=== PATIENT | female | born 1985 | race African-American/Black ===

== ENCOUNTER 2016-09-18 12:32 | Emergency (ER) | payer SELFPAY ==
[2016-09-18 12:57] VITALS: BP 131/76; PULSE 86; TEMP 98.7; BMI 20.1
[2016-09-18 13:39] LABS: RBC/URINE 0-2 (0-5); WBC/URINE 20-30 (0-5)
--- NOTE | 2016-09-18 13:50 | EDPRACDOC ---
- General Information Chief Complaint: Abdominal Pain Stated Complaint: ABDOMINAL PAIN Time Seen by Provider: 09/18/16 13:35 Information Source: Patient Mode Of Arrival: Car Home Medications: Home Medications Nitrofurantoin [Macrobid] 100 mg PO BID #20 capsule 09/18/16 Allergies/Adverse Reactions: Allergies Allergy/AdvReac Type Severity Reaction Status Date / Time tramadol Allergy Severe Hives* Verified 09/18/16 13:37 acetaminophen Allergy Unknown Verified 09/18/16 13:37 [From Tylenol-Codeine #3] codeine phosphate Allergy Unknown Verified 09/18/16 13:37 [From Tylenol-Codeine #3] - History of Present Illness 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 SHE STATES HER URINE HAS A STRONG SMELL AND IS MORE CONCENTRATED THAN NORMAL. PT APPEARS NON TOXIC SITTING UP IN BED TALKING ON CELL PHONE LAUGHING AND SMILING. Pain Location: Reports: Suprapubic Pain Context: Reports: Spontaneous Pain Severity: Mild Pain Quality: Reports: Aching, Sharp Pain Radiation: Reports: No Radiation Last Menstrual Period: week late : (unknown) Control Method: Reports: None Blood Type: B+ Female Abdominal History: Reports: Similar Pain (dx) Modifying Factors: improves with: Movement Female Associated Signs & Symptoms: Reports: Other (INCREASED APPETITE) Oral Intake: Normal Urinary Output: Normal ED Past Medical History - History Reviewed Yes Nurses notes reviewed and agree except as marked Travel Outside of [place] in the Last 3 Months?: No No Past Medical History: Yes Patient has no past medical history - Patient Medical History Psychological History: Denies: Depression, Substance Use Disorder Systemic History: Reports: Anemia. Denies: Cancer, Lupus Additional Past Medical History: CURRENTLY Surgical History: Denies: Hysterectomy - Family Medical History Reports: Hypertension (mgm), Diabetes (aunt, mgm), Cancer (mother, aunt), Stroke (brother, uncle), Cardiac Disorders (mgf, aunt) - Social Medical History Smoking Status: Never smoker Social History: Denies: Substance Use Disorder ETOH: None Substance Abuse: None Lives With: Other Lives In: Home EDM Review of Systems - Review of Systems ROS Negative Except as Marked: Yes All systems reviewed and were negative except as marked Constitutional: No Symptoms Reported. negative: Fever, Chills, Weakness, Fatigue, Loss of Appetite Eyes: No Symptoms Reported. negative: Redness, Blurred Vision, Double Vision, Discharge, Pain, Light Sensitive, Photophobia Ears: No Symptoms Reported. negative: Pain, Hearing Loss, Drainage, Ear Pulling Throat: No Symptoms Reported. negative: Pain, Swelling Nose: No Symptoms Reported. negative: Congestion, Bleeding, Discharge, Injection, Swelling, Deformity, Ecchymosis, Tender, Abrasion, Laceration Mouth: No Symptoms Reported. negative: Pain, Drooling Respiratory: No Symptoms Reported. negative: Cough, Brassy Cough, Barky Cough, Shortness of Breath, Wheezing, Hemoptysis Cardiovascular: No Symptoms Reported. negative: Chest Pain, Palpitations, Syncope, Edema, Orthopnea, PND, Skin Mottling, Cyanosis Gastrointestinal: Pain. negative: Constipation, Diarrhea, Formula Intolerance, Melena, Nausea, Vomiting Genitourinary: No Symptoms Reported. negative: Dysuria, Hematuria, Frequency, Discharge, Bleeding, Testicular Pain, Neurological: No Symptoms Reported. negative: Headache, Dizziness, Seizure, Numbness, Weakness, Speech Difficulty, Gait Difficulty Musculoskeletal: No Symptoms Reported. negative: Neck, Chestwall, Ribs, Back, Shoulder, Arm, Elbow, Forearm, Wrist, Hand, Pelvis, Hip, Femur, Knee, Leg, Ankle , Foot Integumentary: No Symptoms Reported. negative: Itching, Rash, Bruising, Wound Allergic/Immunologic: No Symptoms Reported. negative: Hives, Itching Hematologic: No Symptoms Reported. negative: Lymphadenopathy, Easy Bruising, Easy Bleeding Endocrine: No Symptoms Reported. negative: Weight Gain, Weight Loss Psychiatric: No Symptoms Reported. negative: Anxiety, Depression, Hallucinations, Insomnia, Suicidal - Physical Exam Constitutional: Alert (Awake), No apparent distress Oriented to: Time, Person, Place Last recorded Vital Signs: Last Vital Signs Temp 98.7 F 09/18/16 12:54 Pulse 86 09/18/16 12:54 Resp 18 09/18/16 12:54 BP 131/76 09/18/16 12:54 Pulse Ox 100 09/18/16 12:54 Oxygen Pulse Oxygen Saturation 100 O2 Device Room Air Oxygen Flow Rate Fraction of Inspired Oxygen ( FIO2) - HEENT Head: Normal ( normocephalic) Eye Exam: Normal (PERRL, EOMI, Sclera white) Oropharynx: Normal (Pharynx:Moist without exudate,Gums-no swelling) Tympanic Membrane: Normal ENT EAC: Normal TMJ: Normal Nose: No Symptoms Reported (septum midline) Neck: Normal (FROM, trachea at midline) - Respiratory/Cardiovascular Respiratory: Normal - CTA (BBS clear to auscultation without adventitious sounds ) Cardiovascular: Normal (RRR without murmur, gallop or rub) - GI Auscultation: Normal (NABS) Palpation: Normal (Soft,No rebound or guarding, non distended) Tenderness: Non tender Rayo's Sign: Negative - Musculoskeletal Back: Normal (Non-Tender) Extremities: Normal (Normal tone, Pulses 2+ No cyanosis or edema, FROM) - Integumentary Skin: Normal, Warm, Dry Lymphatics: Normal (no adenopathy) - Neurologic Memory Impaired: Normal Motor Function: Normal (Normal tone, Pulses 2+ No cyanosis or edema, FROM) Cranial Nerve: Normal (CN II-X11 intact sensation, strength 5/5) Cerebellar: Normal Mood Description: Normal Perception: Normal - Differential Diagnosis UTI, Other () - Results Urine Color Yellow 09/18/16 12:55 Urine Clarity Cldy 09/18/16 12:55 Urine pH 5.0 (5.0-8.0) 09/18/16 12:55 Ur Specific Colo 1.025 (1.003-1.035) 09/18/16 12:55 Urine Protein Trace (NEG/TRACE) 09/18/16 12:55 Urine Glucose (UA) Neg (NEGATIVE) 09/18/16 12:55 Urine Ketones Neg (NEGATIVE) 09/18/16 12:55 Urine Occult Blood Neg (NEG/TRACE) 09/18/16 12:55 Urine Nitrite Pos (NEGATIVE) H 09/18/16 12:55 Urine Bilirubin Neg (NEGATIVE) 09/18/16 12:55 Urine Urobilinogen 0.2 MG/DL (0-1) 09/18/16 12:55 Ur Leukocyte Esterase 1+ (NEGATIVE) H 09/18/16 12:55 Urine RBC 0-2 (0-5) 09/18/16 12:55 Urine WBC 20-30 (0-5) H 09/18/16 12:55 Ur Epithelial Cells 2+ 09/18/16 12:55 Urine Bacteria 4+ (NEG/FEW) H 09/18/16 12:55 Urine Mucus Occ (NEG/OCC) 09/18/16 12:55 Urine Test Pos (NEGATIVE) H 09/18/16 12:55 Lab Results 09/18/16 09/18/16 12:55 12:55 Urine Color Yellow Urine Clarity Cldy Urine pH 5.0 Ur Specific Colo 1.025 Urine Protein Trace Urine Glucose (UA) Neg Urine Ketones Neg Urine Occult Blood Neg Urine Nitrite Pos H Urine Bilirubin Neg Urine Urobilinogen 0.2 Ur Leukocyte Esterase 1+ H Urine RBC 0-2 Urine WBC 20-30 H Ur Epithelial Cells 2+ Urine Bacteria 4+ H Urine Mucus Occ Urine Test Pos H Decision Time to Discharge: 13:54 - Departure Disposition: Home Condition: Stable Final Diagnosis: Qualifiers: Weeks of gestation: unspecified Qualified Code(s): Z33.1 - state, incidental UTI (urinary tract infection) Qualifiers: Urinary tract infection type: acute cystitis Hematuria presence: without hematuria Qualified Code(s): N30.00 - Acute cystitis without hematuria Instructions: (ED), Urinary Tract Infection in Women (ED), Dysuria Education/Counseling Given To: Patient Education/Counseling Given Regarding: Diagnosis, Treatment, Prognosis, Follow Up Referrals: None,No Provider [Primary Care Provider] - One Week Prescriptions: Nitrofurantoin [Macrobid] 100 mg PO BID #20 capsule Additional Instructions: INCREASE PO FLUIDS, VITAMINS DAILY.
[2016-09-18 13:51] LABS: LEUKOCYTES/URINE 1+ (NEGATIVE); NITRITE/URINE POS (NEGATIVE); URINE OCCULT BLOOD NEG (NEG/TRACE)
== END 2016-09-18 14:14 | disposition home or self-care (01) ==
LOC: ED 12:32 → EDMC 14:14
DX: O23.40 Unspecified infection of urinary tract in pregnancy, unspecified trimester (principal); Z3A.00 Weeks of gestation of pregnancy not specified
CPT/HCPCS: 81001; 81025; 87077; 87086; 87186; 99282